=== PATIENT | female | born 1965 | race Caucasian/White ===

== ENCOUNTER 2016-08-03 10:03 | Emergency (ER) | payer MEDICAID ==
[~2016-08-03] VITALS: Ht 167.6 cm; Wt 70.0 kg
[~2016-08-03 10:03] MED LIST: AMLO10TA2 PO; ASPI-496 PO
[2016-08-03] MEDS ORDERED: TRAM50TA2 PO (10:39)
[2016-08-03] MEDS ORDERED: SERT100T5 PO (10:39)
[2016-08-03] MEDS ORDERED: TRAZ150T68 PO (10:39)
[2016-08-03] MEDS ORDERED: MELO-190 PO (10:39)
[2016-08-03] MEDS ORDERED: GABA-827 PO (10:39)
[2016-08-03] MEDS ORDERED: PROP60CA8 PO (10:43)
[2016-08-03] MEDS ORDERED: SODIUM CHLORIDE 0.9% 1,000 ML IV ONE (11:21)
[2016-08-03] MEDS ORDERED: SODIUM CHLORIDE FLUSH 10ML SYR IVF ONE (11:30)
[2016-08-03] MEDS ORDERED: SODIUM CHLORIDE 0.9% 1,000ML IVBOLUS ONE (11:30)
[2016-08-03] MEDS ORDERED: MECLIZINE CHEWABLE 25 MG TAB PO ONE (11:30)
[2016-08-03 12:07] LABS: ASPARTATE AMINO TRANSFERASE 10 U/L (15-37); BLOOD UREA NITROGEN 13 mg/dL (7-18)
[2016-08-03 12:22] LABS: IS PT STATUS REG ER OR PRE ER? YES
[2016-08-03] MEDS ORDERED: MECLIZINE CHEWABLE 25 MG TAB ONE (12:43)
[2016-08-03 13:36] VITALS: BP 137/65
== END 2016-08-03 14:29 | disposition home or self-care (01) ==
LOC: ED 14:26
DX: H81.13 Benign paroxysmal vertigo, bilateral (principal); R55 Syncope and collapse; D50.0 Iron deficiency anemia secondary to blood loss (chronic); M54.2 Cervicalgia; M54.9 Dorsalgia, unspecified; G89.29 Other chronic pain; I10 Essential (primary) hypertension; Z88.0 Allergy status to penicillin
CPT/HCPCS: 36415; 70450; 71010; 80053; 81003; 84484; 85025; 93005; 96360; 99285; J7030

== ENCOUNTER 2018-12-04 21:02 | Emergency (ER) | payer MEDICARE, MEDICAID ==
[~2018-12-04] VITALS: Ht 162.6 cm; Wt 80.1 kg
[~2018-12-04 21:02] MED LIST changes: -AMLO10TA2 PO; +AMLO10TA8 PO; +GABA-827 PO; +MELO7.5T31 PO; +PROP60CA8 PO; +SERT100T32 PO; +TRAM50TA2 PO; +TRAZ150T62 PO
--- NOTE | 2018-12-04 21:15 | NUR ---
PT ATTACHED TO ALL MONITORS. C/O STERNAL CP X 3 DAYS. CALL LIGHT WITHIN REACH. NO ACUTE DISTRESS.
[2018-12-04 22:22] LABS: BASOPHILS # (AUTO) 0.03 x10^3/uL (0-0.1); BASOPHILS % (AUTO) 1 % (0-1); EOSINOPHILS # (AUTO) 0.11 x10^3/uL (0-0.4); EOSINOPHILS % (AUTO) 2 % (1-7); LYMPHOCYTES % (AUTO) 36 % (22-44); MD NO; MEAN CORPUSCULAR HEMOGLOBIN 29.8 pg (27.0-34.8); MEAN CORPUSCULAR HGB CONC 33.1 g/dL (32.4-35.8); MEAN CORPUSCULAR VOLUME 89.9 fL (80-100); MEAN PLATELET VOLUME 8.2 fL (7.4-10.4); MONOCYTES # (AUTO) 0.49 x10^3/uL (0.2-0.8); MONOCYTES % (AUTO) 7 % (2-9); NEUTROPHILS # (AUTO) 3.82 x10^3/uL (1.8-6.8); NEUTROPHILS % (AUTO) 55 % (42-75); PLATELET COUNT 250 x10^3/uL (130-400); RED BLOOD COUNT 4.63 x10^6/uL (3.82-5.3); RED CELL DISTRIBUTION WIDTH 13.5 % (9.6-15.2)
[2018-12-04 22:37] LABS: ALBUMIN 3.8 g/dL (3.4-5.0); ANION GAP 7 mmol/L (5-15); CALCIUM 8.9 mg/dL (8.5-10.1); CHLORIDE 109 mmol/L (98-107); CREATININE 0.82 mg/dL (0.55-1.02)
[2018-12-04 22:41] LABS: TROPONIN I < 0.015 ng/mL (0.000-0.045)
--- NOTE | 2018-12-04 22:52 | NUR ---
PT PLACED FOR RECHECK BY AYLEEN MULLER
[2018-12-04 23:14] VITALS: BP 138/80
== END 2018-12-04 23:53 | disposition home or self-care (01) ==
LOC: ED 23:38
DX: R07.89 Other chest pain (principal); M54.2 Cervicalgia; R20.2 Paresthesia of skin; M25.512 Pain in left shoulder; I10 Essential (primary) hypertension
CPT/HCPCS: 36415; 71045; 80048; 82040; 83880; 84484; 85025; 93005; 99284

== ENCOUNTER 2018-12-06 09:00 | Outpatient (CLI) | payer MEDICARE, MEDICAID | END 2018-12-06 23:59 | disposition home or self-care (01) | LOC: CVU 09:00 | PROVIDERS: ATTEND Surgery | DX: I83.813 Varicose veins of bilateral lower extremities with pain (principal) | CPT/HCPCS: 93970 ==

== ENCOUNTER → 2019-12-25 | Outpatient (CLI) | payer MEDICARE, MEDICAID ==
[~2019-12-25] MED LIST changes: +AMIT25TA PO; +AMLO-211 PO; -AMLO10TA8 PO; +ATOR40TA78 PO; +CELE200C PO; +DOCU100T PO; +OMEP-110 PO; +PARO-28 PO; +PROP60CA36 PO; -PROP60CA8 PO; +gabapentin PO
== END | disposition home or self-care (01) ==
LOC: STAR 13:54
PROVIDERS: ATTEND Surgery
DX: Z01.812 Encounter for preprocedural laboratory examination (principal); Z20.828 Contact with and (suspected) exposure to other viral communicable diseases
CPT/HCPCS: 87635

== ENCOUNTER 2019-12-30 09:03 | Day surgery (SDC) | payer MEDICARE, MEDICAID ==
[~2019-12-30] VITALS: Ht 162.6 cm; Wt 83.0 kg
[~2019-12-30 09:03] MED LIST changes: -DOCU100T PO; +[UNRECOGNIZED DRUG - CODE] PO
[2019-12-30] MEDS ORDERED: CHLORHEXIDINE 15 ML UDC MM STA (09:14)
[2019-12-30] MEDS ORDERED: CHLORHEXIDINE 15 ML UDC ONE (09:17)
[2019-12-30 09:26] VITALS: BP 135/86
[2019-12-30] MEDS ORDERED: LACTATED RINGERS 1,000 ML IV SCH (09:30)
[2019-12-30] MEDS ORDERED: PROMETHAZINE 25 MG/ML, 1ML IVPush PRN (11:30)
[2019-12-30] MEDS ORDERED: hydrALAzine 20 MG/ML, 1ML IV PRN (11:30)
[2019-12-30] MEDS ORDERED: FENTANYL PF 100 MCG/2ML ONE ×3 (11:30→13:44)
[2019-12-30] MEDS ORDERED: MIDAZOLAM 1 MG/ML, 2ML ONE (11:30)
[2019-12-30] MEDS ORDERED: HYDROmorphone 1 MG/ML, 1ML INJ IVPush PRN (11:30)
[2019-12-30] MEDS ORDERED: MEPERIDINE/PF 25MG/0.5ML IVPush PRN (11:30)
[2019-12-30] MEDS ORDERED: LABETALOL 5MG/ML, 20ML IV PRN (11:30)
[2019-12-30] MEDS ORDERED: FENTANYL PF 100 MCG/2ML IV PRN (11:30)
[2019-12-30] MEDS ORDERED: HALOPERIDOL 5 MG/ML IV PRN (11:30)
[2019-12-30] MEDS ORDERED: HYDROcodone/APAP 7.5-325MG/15ML UDC PO PRN (11:30)
[2019-12-30] MEDS ORDERED: DIPHENHYDRAMINE 50 MG/ML, 1ML IVPush PRN (11:30)
[2019-12-30] MEDS ORDERED: KETOROLAC 30 MG/1 ML ONE (12:11)
[2019-12-30] MEDS ORDERED: NEOSTIGMINE 1 MG/ML, 10ML ONE (13:00)
[2019-12-30] MEDS ORDERED: GLYCOPYRROLATE 0.2MG/1ML, 5ML ONE (13:00)
[2019-12-30] MEDS ORDERED: SUCCINYLCHOLINE 20 MG/ML, 10ML ONE (13:00)
[2019-12-30] MEDS ORDERED: ONDANSETRON 2MG/ML, 2ML ONE (13:00)
[2019-12-30] MEDS ORDERED: PROPOFOL 10 MG/ML, 20ML ONE (13:00)
[2019-12-30] MEDS ORDERED: CEFAZOLIN 1,000 MG ONE (13:00)
[2019-12-30] MEDS ORDERED: ROCURONIUM 10MG/ML,5ML ONE (13:00)
[2019-12-30] MEDS ORDERED: DEXAMETHASONE 4 MG/ML, 1ML ONE (13:00)
[2019-12-30] MEDS ORDERED: EPINEPHRINE 1 MG/ML, 1ML ONE (13:12)
[2019-12-30] MEDS ORDERED: BUPIVACAINE/PF 0.5% ONE (13:12)
[2019-12-30] MEDS ORDERED: HYDROcodone/APAP 7.5-325MG/15ML UDC ONE (13:44)
== END 2019-12-30 15:35 | disposition home or self-care (01) ==
LOC: OUT 09:03
PROVIDERS: ATTEND Surgery Vascular Surgery
DX: K40.20 Bilateral inguinal hernia, without obstruction or gangrene, not specified as recurrent (principal); I10 Essential (primary) hypertension; E78.5 Hyperlipidemia, unspecified; K21.9 Gastro-esophageal reflux disease without esophagitis; Z79.891 Long term (current) use of opiate analgesic; Z79.899 Other long term (current) drug therapy; Z88.0 Allergy status to penicillin; Z83.3 Family history of diabetes mellitus
CPT/HCPCS: 49505; 81025; C1781; J0171; J0330; J0690; J1100; J1885; J2250; J2405; J2704; J2710; J3010; J7120

== ENCOUNTER 2020-04-12 22:37 | Observation (INO) | payer MEDICAID, MEDICARE ==
[~2020-04-12] VITALS: Ht 165.1 cm; Wt 86.7 kg
[2020-04-12] MEDS ORDERED: ASPIRIN 81 MG TABLET CHEW ONE (23:08)
[2020-04-12] MEDS ORDERED: MAALOX/HYOSCYAMINE/LIDOCAINE 45 ML BTL ONE (23:08)
[2020-04-12 23:29] LABS: ALANINE AMINOTRANSFERASE 21 U/L (12-78); ANION GAP 10 mmol/L (5-15); BASOPHILS % (AUTO) 1 % (0-1); CALCIUM 8.8 mg/dL (8.5-10.1); CHLORIDE 106 mmol/L (98-107); CREATININE 0.69 mg/dL (0.55-1.02); EOSINOPHILS % (AUTO) 1 % (1-7); LYMPHOCYTES % (AUTO) 45 % (22-44); MEAN CORPUSCULAR HEMOGLOBIN 30.5 pg (27.0-34.8); MEAN CORPUSCULAR HGB CONC 34.1 g/dL (32.4-35.8); MEAN PLATELET VOLUME 8.1 fL (7.4-10.4); MONOCYTES % (AUTO) 7 % (2-9); NEUTROPHILS % (AUTO) 47 % (42-75); PLATELET COUNT 214 x10^3/uL (130-400); RED BLOOD COUNT 4.83 x10^6/uL (3.82-5.3); RED CELL DISTRIBUTION WIDTH 13.5 % (9.6-15.2)
[2020-04-12 23:30] LABS: MD NO
[2020-04-12] MEDS ORDERED: ASPIRIN 81 MG TABLET CHEW PO ONE (23:30)
[2020-04-12] MEDS ORDERED: MAALOX/HYOSCYAMINE/LIDOCAINE 45 ML BTL PO ONE (23:30)
[2020-04-12 23:34] LABS: ALKALINE PHOSPHATASE 110 U/L (45-117); BILIRUBIN,TOTAL 0.4 mg/dL (0.2-1.0); TOTAL PROTEIN 7.7 g/dL (6.4-8.2); TROPONIN I < 0.015 ng/mL (0.000-0.045)
--- NOTE | 2020-04-12 23:38 | NUR ---
ua sent and pt medicated per apr. pt vss
[2020-04-12 23:45] LABS: MICROSCOPIC NOT IND
[2020-04-13 01:33] VITALS: BP 146/77
[2020-04-13] MEDS ORDERED: hydrALAzine 20 MG/ML, 1ML IVPush PRN (03:30)
[2020-04-13] MEDS ORDERED: ONDANSETRON 2MG/ML, 2ML IVPush PRN (03:30)
[2020-04-13] MEDS ORDERED: morphine SULFATE 10 MG/ML, 1ML IV PRN (03:30)
[2020-04-13] MEDS ORDERED: ASPIRIN 325 MG TABLET EC PO SCH (06:00)
[2020-04-13] MEDS ORDERED: POTASSIUM CHLORIDE 20 MEQ TAB.ER.PRT PO ONE (06:00)
[2020-04-13 06:34] VITALS: BP 126/75
[2020-04-13 06:55] LABS: CHOL/HDL RATIO 3.6; CHOLESTEROL, TOTAL 151 mg/dL (140-239); HDL CHOL % 28 % (28-40); HDL CHOLESTEROL (DIRECT) 42 mg/dL (40-60); LDL CHOLESTEROL,CALCULATED 95 mg/dL (54-169); LDL/HDL RATIO 2.3 (0.5-3.0); TRIGLYCERIDES 72 mg/dL (50-200); TROPONIN I < 0.015 ng/mL (0.000-0.045); VLDL CHOLESTEROL 14 mg/dL (0-25)
[2020-04-13] MEDS ORDERED: PAROXETINE 20 MG TABLET PO SCH (09:00)
[2020-04-13] MEDS ORDERED: GABAPENTIN 300 MG CAPSULE PO SCH (09:00)
[2020-04-13] MEDS ORDERED: OMEPRAZOLE 20 MG CAPSULE.DR PO SCH (09:00)
[2020-04-13] MEDS ORDERED: AMLODIPINE 5 MG TABLET PO SCH (09:00)
[2020-04-13] MEDS ORDERED: DOCUSATE 100 MG CAPSULE PO SCH (09:00)
[2020-04-13 09:41] LABS: TROPONIN I < 0.015 ng/mL (0.000-0.045)
[2020-04-13] MEDS ORDERED: LISI-167 PO (09:47)
[2020-04-13] MEDS ORDERED: AMITRIPTYLINE 25 MG TABLET PO SCH (21:00)
[2020-04-13] MEDS ORDERED: ATORVASTATIN 20 MG TABLET PO SCH (21:00)
== END 2020-04-13 10:41 | disposition home or self-care (01) ==
LOC: ED 04-13 00:20 → EDIP 04-13 00:43 → INTOOBSV 04-13 00:43 → 5SO 04-13 01:00 → DCLOUNGE 04-13 10:31
PROVIDERS: ADMIT Family Medicine; ATTEND Hospitalist
DX: R07.89 Other chest pain (principal); E87.6 Hypokalemia; I10 Essential (primary) hypertension; E78.5 Hyperlipidemia, unspecified; K21.9 Gastro-esophageal reflux disease without esophagitis; R10.9 Unspecified abdominal pain; G89.29 Other chronic pain; M54.5 Low back pain; R42 Dizziness and giddiness; R73.03 Prediabetes; F32.9 Major depressive disorder, single episode, unspecified; E66.9 Obesity, unspecified; Z86.69 Personal history of other diseases of the nervous system and sense organs; Z88.0 Allergy status to penicillin; Z79.899 Other long term (current) drug therapy; Z68.31 Body mass index [BMI] 31.0-31.9, adult
CPT/HCPCS: 36415; 71045; 80053; 80061; 81003; 83036; 83690; 84484; 85025; 93005; 93017; 99285; G0378